=== PATIENT | male | born 2005 | race Caucasian/White ===

== ENCOUNTER 2024-09-23 19:45 | Inpatient (IN) | payer OTHER ==
--- NOTE | 2024-09-23 20:04 | ED ---
General Adult HPI - General Chief complaint: Seizure Stated complaint: Seizure Time Seen by Provider: 09/23/24 19:47 Source: patient Mode of arrival: EMS Limitations: no limitations - History of Present Illness Initial comments: Dictation was produced using [employer] dictation software. please excuse any grammatical, word or spelling errors. Chief Complaint: 19-year-old seizure disorder presents with seizure History of Present Illness: Patient 19-year-old male he had a seizure last year in May. He was supposed to follow-up with neurologist but did not. [place] When he got home he was told that he had 2 seizures in a row. Brought in by EMS. Patient takes blood pressure medications. Denies any symptoms currently. It is unclear patient had postictal state. Denies any tongue pain or extremity pain The ROS documented in this emergency department record has been reviewed and confirmed by me. Those systems with pertinent positive or negative responses have been documented in the HPI. All other systems are other negative and/or noncontributory. - Related Data Allergies Allergy/AdvReac Type Severity Reaction Status Date / Time No Known Allergies Allergy Verified 09/23/24 19:55 Review of Systems ROS Statement: Those systems with pertinent positive or pertinent negative responses have been documented in the HPI. ROS Other: All systems not noted in ROS Statement are negative. Past Medical History Past Medical History: Hypertension, Seizure Disorder History of Any Multi-Drug Resistant Organisms: None Reported Past Surgical History: No Surgical Hx Reported Past Psychological History: No Psychological Hx Reported Smoking Status: Current every day smoker Past Alcohol Use History: None Reported Past Drug Use History: Marijuana General Exam - General Exam Comments Initial Comments: PHYSICAL EXAM: General Impression: Alert and oriented x3, not in acute distress HEENT: Normocephalic atraumatic, extra-ocular movements intact, pupils equal and reactive to light bilaterally, mucous membranes moist. Cardiovascular: Heart regular rate and rhythm Chest: Able to complete full sentences, no retractions, no tachypnea Abdomen: abdomen soft, non-tender, non-distended, no organomegaly Musculoskeletal: Pulses present and equal in all extremities, no peripheral edema Motor: no focal deficits noted Neurological: CN II-XII grossly intact, no focal motor or sensory deficits noted Skin: Intact with no visualized rashes Psych: Normal affect and mood Limitations: no limitations Course Vital Signs 09/23/24 19:46 Temperature 98.3 F Pulse Rate 93 Respiratory 17 Rate Blood Pressure 128/69 O2 Sat by Pulse 98 Oximetry EKG Findings - EKG Comments: EKG Findings:: My EKG interpretation: Ventricular rate 94, sinus rhythm, MO interval 153, cures 93, QTc 390. No MO prolongation, no QTC prolongation, no ST or T-wave changes noted. Overall, this EKG is unremarkable. . Medical Decision Making - Medical Decision Making Was pt. sent in by a medical professional or institution (, PA, NOTCH MACHINE OPERATOR, urgent care, hospital, or long-term...) When possible be specific @ -No Did you speak to anyone other than the patient for history (EMS, parent, family, police, friend...)? What history was obtained from this source @ -No Did you review nursing and triage notes (agree or disagree)? Why? @ -I reviewed and agree with nursing and triage notes Were old charts reviewed (outside hosp., previous admission, EMS record, old EKG, old radiological studies, urgent care reports/EKG's, long-term records)? Report findings @ -No old charts were reviewed Differential Diagnosis (chest pain, altered mental status, abdominal pain women, abdominal pain men, vaginal bleeding, musculoskeletal, weakness, fever, dyspnea, syncope, headache, dizziness, GI bleed, back pain, seizure, CVA, palpatations, mental health)? @ -Differential Seizure: Recurrent seizure disorder, febrile seizure, alcohol withdrawal, stimulants, meningitis, encephalitis, intercranial hemorrhage, intracranial tumor, stroke, e clampsia, thyrotoxicosis, hypocalcemia, hyponatremia, hypernatremia, hypomagnesemia, psychogenic, this is not meant to be an all-inclusive list. EKG interpreted by me (3pts min.). @ -See above X-rays interpreted by me (1pt min.). @ -None done CT interpreted by me (1pt min.). @ -None done U/S interpreted by me (1pt. min.). @ -None done What testing was considered but not performed or refused? (CT, X-rays, U/S, labs)? Why? @ -None What meds were considered but not given or refused? Why? @ -None Was smoking cessation discussed for >3mins.? @ -No Were there social determinants of health that impacted care today? How? (Homelessness, low income, unemployed, alcoholism, drug addiction, tra nsportation, low edu. Level, literacy, decrease access to med. care, penitentiary, rehab)? @ -No Was there de-escalation of care discussed even if they declined (Discuss DNR or withdrawal of care, Hospice)? DNR status @ -No What co-morbidities impacted this encounter? (DM, HTN, Smoking, COPD, CAD, Cancer, CVA, ARF, Chemo, Hep., AIDS, mental health diagnosis, sleep apnea, morbid obesity)? @ -None Was patient admitted / discharged? Hospital course, mention meds given and route, prescriptions, significant lab abnormalities, going to OR and other pertinent info. @ -19-year-old male with 2 seizures today. Vital signs are stable. Patient well-appearing. Neurologic exam is unremarkable. Labs are unremarkable. Case discussed with neurologist recommended patient be admitted for further care. Family agreeable with plan. Patient given 1 g of Keppra. Did you discuss the management of the patient with other professionals (professionals i.e. , PA, NOTCH MACHINE OPERATOR, lab, RT, psych nurse, social service agency director, auto damage trainee, teacher, registration officer, case briefer)? Give summary @ -No Was critical care preformed (if so, how long)? @ -No Undiagnosed new problem with uncertain prognosis? @ -No Drug Therapy requiring intensive monitoring for toxicity (Heparin, Nitro, Insulin, Cardizem)? @ -No Were any procedures done? @ -No Diagnosis/symptom? Acute, or Chronic, or Acute on Chronic? Uncomplicated (without systemic symptoms) or Complicated (systemic symptoms)? @ -Seizure Side effects of treatment? @ -No Exacerbation, Progression, or Severe Exacerbation? @ -No Poses a threat to life or bodily function? How? (Chest pain, [place], [place], pneumonia, PE, COPD, DKA, ARF, appy, cholecystitis, CVA, Diverticulitis, Homicidal, Suicidal, threat to staff... and all critical care pts) @ -yes - Lab Data Result diagrams: 09/23/24 20:11 09/23/24 20:11 Lab Results 09/23/24 09/23/24 Range/Units 20:11 20:11 WBC 11.86 H (4.50-10.00) 10*3/uL RBC 4.89 (4.40-5.60) 10*6/uL Hgb 14.6 (13.0-17.0) g/dL Hct 41.1 (39.6-50.0) % MCV 84.0 (80.0-97.0) fL MCH 29.9 (27.0-32.0) pg MCHC 35.5 (32.0-37.0) g/dL Plt Count 261 (140-440) 10*3/uL MPV 9.3 L (9.5-12.2) fL Immature Gran % (Auto) 0.7 % Neutrophils % 83.6 % Lymphocytes % 7.5 % Monocytes % 7.8 % Eosinophils % 0.2 % Basophils % 0.2 % Immature Gran # 0.08 H (0.00-0.04) 10*3/uL Neutrophils # 9.92 H (1.80-7.70) 10*3/uL Lymphocytes # 0.89 L (0.90-5.00) 10*3/uL Monocytes # 0.93 (0.20-1.00) 10*3/uL Eosinophils # 0.02 L (0.04-0.35) 10*3/uL Basophils # 0.02 (0.00-0.10) 10*3/uL Sodium 134 L (137-145) mmol/L Potassium 4.4 (3.5-5.1) mmol/L Chloride 102 (98-107) mmol/L Carbon Dioxide 23 (22-30) mmol/L Anion Gap 9 mmol/L BUN 10 (9-20) mg/dL Creatinine 0.81 (0.66-1.25) mg/dL Est GFR (CKD-EPI)AfAm >90 (>60 ml/min/1.73 sqM) Est GFR (CKD-EPI)NonAf >90 (>60 ml/min/1.73 sqM) Glucose 112 H (74-99) mg/dL Calcium 9.3 (8.4-10.2) mg/dL Magnesium 2.6 H (1.6-2.3) mg/dL Disposition Clinical Impression: Seizure Disposition: ADMITTED IP TO THIS [facility] Condition: Fair Referrals: Laura Keller FNPBC [REFERRING] - 1-2 days Decision Time: 22:12
[2024-09-23 20:19] LABS: Basophils # (A) 0.02 10*3/uL (0.00-0.10); Basophils % (A) 0.2 %; Eosinophils # (A) 0.02 10*3/uL (0.04-0.35); Eosinophils % (A) 0.2 %; HCT 41.1 % (39.6-50.0); HGB 14.6 g/dL (13.0-17.0); Lymphocytes # (A) 0.89 10*3/uL (0.90-5.00); Lymphocytes % (A) 7.5 %; MCH 29.9 pg (27.0-32.0); MCHC 35.5 g/dL (32.0-37.0); Mean Platelet Volume 9.3 fL (9.5-12.2); Monocytes # (A) 0.93 10*3/uL (0.20-1.00); Monocytes % (A) 7.8 %; Neutrophils # (A) 9.92 10*3/uL (1.80-7.70); Neutrophils % (A) 83.6 %; Platelet Count 261 10*3/uL (140-440); RBC 4.89 10*6/uL (4.40-5.60); RDW 11.9 % (11.5-14.5); WBC 11.86 10*3/uL (4.50-10.00)
[2024-09-23 20:32] LABS: African American GFR (CKD) >90 (>60 ml/min/1.73 sqM); Anion Gap 9 mmol/L; Blood Urea Nitrogen 10 mg/dL (9-20); Calcium 9.3 mg/dL (8.4-10.2); Carbon Dioxide 23 mmol/L (22-30); Chloride 102 mmol/L (98-107); Glucose 112 mg/dL (74-99); Non-African American GFR(CKD) >90 (>60 ml/min/1.73 sqM); Sodium 134 mmol/L (137-145)
[2024-09-23 20:34] LABS: Magnesium 2.6 mg/dL (1.6-2.3); Potassium 4.4 mmol/L (3.5-5.1)
[2024-09-23] MEDS ORDERED: NALOXONE 0.4 MG/ML 1 ML VIAL IV PRN (22:07)
[2024-09-23] MEDS: levETIRAcetam IV 500 MG/5 ML VIAL IVP STA (22:15)
[2024-09-24] MEDS: SODIUM CHLORIDE 0.9% 1,000 ML IV SCH (00:13)
[2024-09-24] MEDS ORDERED: LORazepam 1 MG/0.5 ML VIAL IV PRN (06:57)
[2024-09-24 11:32] LABS: Amphetamine Screen,Urine Not Detected (NotDetected); Barbiturate Screen,Urine Not Detected (NotDetected); Benzodiazepines Screen,Urine Not Detected (NotDetected); Cocaine Screen,Urine Not Detected (NotDetected); Methadone Screen, Urine Not Detected (NotDetected); Opiate Screen,Urine Not Detected (NotDetected); Oxycodone Screen, Urine Not Detected (NotDetected); Phencyclidine Screen,Urine Not Detected (NotDetected); Tricyclic Antidepressant,Urine Not Detected (NotDetected); Urn Cannabinoid Scrn Detected (NotDetected)
--- NOTE | 2024-09-24 12:36 | EEG ---
ELECTROENCEPHALOGRAM REPORT PREAMBLE: This is a 19-year-old male, who had 2 witnessed seizures. He had a similar event in May 2024 as well. CURRENT MEDICATIONS: None. EEG FINDINGS: This is a 21-channel digital EEG recorded with video component, utilizing 10/20 international system with referential and bipolar montage. Background consists of well developed, well regulated moderate voltage activity in 8 to 9 Hz alpha. Background is posterior dominant and reactive to eye opening and closing. Photic driving response was not seen. Some drowsiness was seen with appearance of bilaterally symmetric theta frequency rhythm. Deeper stages of sleep were not seen. No focal or generalized epileptiform activity was seen. IMPRESSION: This is a normal, awake, and drowsy EEG. No focal, lateralized, or epileptiform activity was seen. MMODL / IJN: [id number] /
[2024-09-24] MEDS: levETIRAcetam 500 MG TAB PO SCH (12:56)
[2024-09-24] MEDS: LOSARTAN 50 MG TAB PO SCH (12:56)
[2024-09-24 14:36] VITALS: BP 131/72; PULSE 72; RESP 16; TEMP 97.9
--- NOTE | 2024-09-24 15:31 | P.CNNES ---
History of Present Illness Consult date: 09/24/24 Requesting physician: Jose Henry Reason for Consult: Seizure History of Present Illness: Patient is a 19-year-old male, who states that he had history of a seizure in May 2024 for which he went to a hospital, the name he does not remember. He states that he underwent MRI of the brain, and was recommended to follow-up with neurologist outpatient. He did not see any neurologist as yet. He had ano ther seizure yesterday. [place] in [place] bed, hit the weed, and soon he started feeling lightheaded. He was sitting at that time. His sister gave him a water bottle, and he drank all of it. He felt seizure coming. Shortly after he had a seizure, and he fell off the bed, and he bit his tongue. He did not lose control of urine. It was reported that patient had 2 seizures yesterday. Patient does not remember details. Patient's mother telephone number is out of service and father had received a new number that patient does not remember. Nursing staff does not have any contact of family members at this time. As per EMS flowsheet, patient's blood pressure at the scene was 114/60, heart rate 109, saturation 96% and blood sugar 171. As per ED report, it was reported that he had 2 seizures in a row. He was brought by EMS. Patient was given 1 g of Keppra in the ER. EKG showed sinus rhythm. Blood test shows WBC 11.86, hemoglobin 14.6 platelets are normal. Basic metabolic panel normal. Urine drug screen positive for marijuana. Magnesium 2.6. We tried to obtain records from [facility], but apparently he has never been in that hospital. Patient does not remember which hospital he was in with the last admission in May 2024. Review of Systems All pertinent positive and negative review of systems mentioned in the HPI, otherwise unremarkable. Past Medical History Past Medical History: Hypertension, Seizure Disorder History of Any Multi-Drug Resistant Organisms: None Reported Past Surgical History: No Surgical Hx Reported Past Psychological History: No Psychological Hx Reported Smoking Status: Never smoker Past Alcohol Use History: None Reported Past Drug Use History: Marijuana Medications and Allergies Home Medications Medication Instructions Recorded Confirmed Type Losartan [Cozaar] 50 mg PO DAILY 09/24/24 09/24/24 History Allergies Allergy/AdvReac Type Severity Reaction Status Date / Time No Known Allergies Allergy Verified 09/24/24 08:39 Physical Examination - Vital Signs Vital Signs: Vital Signs Temp Pulse Pulse Resp BP BP Pulse Ox 09/24/24 14:35 97.9 F 72 16 131/72 98 09/24/24 07:00 97.7 F 65 18 134/77 98 09/24/24 02:00 16 09/24/24 01:56 98.4 F 83 18 121/67 96 09/23/24 23:36 98.2 F 72 17 150/79 97 09/23/24 22:20 98.4 F 71 17 124/75 100 09/23/24 19:46 98.3 F 93 17 128/69 98 Intake and Output 09/24/24 09/24/24 09/24/24 06:59 14:59 22:59 Other: # Voids 2 2 Patient is a young male, in no acute distress. Patient is alert awake oriented to time place and person. Speech and language functions are normal. Patient can name and repeat very well. No aphasia or dysarthria. Attention, concentration and fund of knowledge is adequate. On cranial nerve examination, pupils are equal, round and reacting to light, visual pandey are full on confrontation, with no neglect on double simultaneous stimulation. Extraocular muscles are intact with no nystagmus. Face is symmetric, tongue protrudes to the midline. Palatal elevation and sensation normal, hearing and shoulder shrug normal, facial sensation normal. Patient does have evidence of tongue bite mariella on the left side. On muscle strength testing, there is no pronator drift and the strength is normal in arms and legs distally and proximally. Deep tendon reflexes are symmetric 2+ all over and plantars downgoing. Sensory to touch is equal with no neglect on double simultaneous stimulation. Cerebellar function showed no ataxia for [id number] testing. No dysdiadochokinesia. No ataxia for [id number] testing on either side. Tone and bulk of muscles normal. Gait deferred.. On general examination, there is no carotid bruit or murmur, S1-S2 audible. Chest is clear on consultation. Abdomen is soft nontender. No organomegaly, bowel sounds present. Peripheral pulses are present. No peripheral edema. Results - Laboratory Findings CBC and BMP: 09/23/24 20:11 09/23/24 20:11 Abnormal Lab Findings: Abnormal Labs 09/23/24 09/23/24 09/24/24 20:11 20:11 10:39 WBC 11.86 H MPV 9.3 L Immature Gran # 0.08 H Neutrophils # 9.92 H Lymphocytes # 0.89 L Eosinophils # 0.02 L Sodium 134 L Glucose 112 H Magnesium 2.6 H U Marijuana (THC) Screen Detected H Assessment and Plan Assessment: * New onset seizure disorder. Patient had first seizure in his lifetime in May 2024. He was not treated with seizure medication. Now he presented with 2 seizures in a row last night. Exact cause is uncertain. He does smoke marijuana, but denies any changes in the pattern of marijuana use. Urine drug screen negative. He does not drink alcohol. * Hypertension. Blood pressure was normal at the scene. * Marijuana use Plan: * Patient underwent EEG, which was normal awake and drowsy. No focal, lateralized or epileptiform activity was seen. At present we have not been able to identify any provoking factor for his seizure. He has been on stable dose of marijuana. Denies any use of illicit drugs. * As this is a second seizure, therefore he is a candidate for antiepileptic medication. He was somewhat reluctant to start the antiepileptic medication at this time. However he did agree to start Keppra 500 mg twice daily. Duration of treatment with seizure medication will be based upon the further test results as mentioned below, and with mutual discussion with the patient's neurologist outpatient. * Recommend patient follow-up with neurologist outpatient. Consider prolonged EEG for further evaluation of underlying epilepsy/seizure tendency. * Patient states he had MRI performed at the hospital with last admission in May 2024, therefore we will hold off on neuroimaging at this time. Patient did not hurt/hit his head with the current seizure. * Patient informed of [place] state law of no driving unless seizure-free for 6 months, climbing ladders, operating dangerous machinery or unsupervised swimming. * Neurologically clear for discharge to follow-up with neurologist outpatient. Thank you for the consult.
[2024-09-24 17:34] VITALS: BMI 25.1
== END 2024-09-24 17:48 | disposition home or self-care (01) | DRG 53 ==
LOC: EC 19:45 → 6NMEDSUR 22:09
PROVIDERS: ADMIT Family Medicine; ATTEND Family Medicine
PROC: 4A10X4Z Monitoring of Central Nervous Electrical Activity, External Approach (ICD-10-PCS; principal; 2024-09-24)
DX: R56.9 Unspecified convulsions (principal); F17.210 Nicotine dependence, cigarettes, uncomplicated; I10 Essential (primary) hypertension; S01.552A Open bite of oral cavity, initial encounter; Z79.899 Other long term (current) drug therapy; W06.XXXA Fall from bed, initial encounter; W19.XXXA Unspecified fall, initial encounter; Y92.013 Bedroom of single-family (private) house as the place of occurrence of the external cause
CPT/HCPCS: 36415; 80048; 80306; 83735; 85025; 93005; 95816; 96374; 99285